=== PATIENT | female | born 1955 | race Caucasian/White ===

== ENCOUNTER 2022-01-27 19:20 | Emergency (ER) | payer MEDICARE, MEDICAID, OTHER ==
[~2022-01-27] VITALS: Ht 162.6 cm; Wt 63.6 kg
[2022-01-27 19:23] VITALS: BP 171/89
[2022-01-27] MEDS ORDERED: dexamethasone sod phosphate 10mg/ml inj IM STA (20:32)
[2022-01-27] MEDS ORDERED: AMOX-117 PO (20:33)
--- NOTE | 2022-01-27 21:00 | NUR ---
Pt phone number: [employer] [phone] [place] [phone]
== END 2022-01-27 21:02 | disposition home or self-care (01) ==
LOC: ER 19:21
DX: J02.9 Acute pharyngitis, unspecified (principal); R51.9 Headache, unspecified; I10 Essential (primary) hypertension; E11.9 Type 2 diabetes mellitus without complications; Z85.9 Personal history of malignant neoplasm, unspecified; Z79.2 Long term (current) use of antibiotics
CPT/HCPCS: 87081; 87880; 96372; 99283; J1100